=== PATIENT | male | born 1980 | race Caucasian/White ===

== ENCOUNTER 2019-09-03 00:22 | Emergency (ER) | payer SELFPAY ==
[~2019-09-03] VITALS: Ht 188 cm; Wt 163.3 kg
--- NOTE | 2019-09-03 00:23 | NUR ---
PT TAKEN TO BED 9 WITH STEADY GAIT.
[2019-09-03 00:30] VITALS: BP 132/74
--- NOTE | 2019-09-03 00:54 | NUR ---
39 Y/O MALE C/O CHEST PAIN X 1 MONTH. STATES PAIN COMES AND GOES AND RADIATES TO LEFT SHOULDER AND ARM. PAIN 8/10 TIGHTNESS. WORSENS WITH MOVEMENT. DENIES N, V, FEVER. INTERMITTENT COUGH PRESENT. REFERRED FROM URGENT CARE AND WAS GIVEN 324MG PO ASPIRIN AT URGENT CARE IN [facility]. HAD A COVID SWAB TEST AT [facility] 2 WEEKS AGO BUT DIDNT FOLLOW UP FOR RESULTS. ALLERIGES: PENCILLIN. PMH: NONE
[2019-09-03] MEDS ORDERED: LIDOCAINE VISCOUS 2% 20 ML UDC ONE (00:58)
[2019-09-03] MEDS ORDERED: ALUMINUM HYD/MAG/SIMETHICONE 30 ML UDC ONE (00:58)
[2019-09-03] MEDS ORDERED: DICYCLOMINE HCL LIQUID 10 MG/5 ML UDC ONE (00:58)
[2019-09-03] MEDS ORDERED: KETOROLAC 60 MG/2 ML VIAL IM ONE (01:00)
[2019-09-03 01:35] VITALS: BP 132/74
== END 2019-09-03 01:35 | disposition home or self-care (01) ==
LOC: MED 00:22
DX: R07.9 Chest pain, unspecified (principal); Z88.0 Allergy status to penicillin; Z90.49 Acquired absence of other specified parts of digestive tract
CPT/HCPCS: 93005; 96372; 99283; J1885